=== PATIENT | male | born 1980 | race Two or more races ===

== ENCOUNTER 2019-05-20 09:58 | Outpatient (CLI) | payer BC | END 2019-05-20 09:59 | disposition EMS.NT | LOC: EMS 09:58 | PROVIDERS: ATTEND Surgery | DX: R07.9 Chest pain, unspecified (principal) ==

== ENCOUNTER 2019-05-20 10:57 | Emergency (ER) | payer BC ==
[2019-05-20 11:29] LABS: BASOPHILS # (AUTO) 0.1 10^3/uL (0.0-0.1); BASOPHILS % (AUTO) 0.6 %; EOSINOPHILS # (AUTO) 0.1 10^3/uL (0.0-0.7); EOSINOPHILS % (AUTO) 1.4 %; LYMPHOCYTES # (AUTO) 1.7 10^3/uL (1.5-3.5); LYMPHOCYTES % (AUTO) 20.1 %; MEAN CORPUSCULAR HEMOGLOBIN 31.1 pg (27.0-31.0); MEAN CORPUSCULAR HGB CONC 35.4 g/dL (32.0-36.0); MEAN CORPUSCULAR VOLUME 87.9 fL (80.0-94.0); MEAN PLATELET VOLUME 9.7 fL (7.4-11.4); MONOCYTES # (AUTO) 0.6 10^3/uL (0.0-1.0); MONOCYTES % (AUTO) 7.4 %; NEUTROPHILS # (AUTO) 5.9 10^3/uL (1.5-6.6); PLT - PLATELET COUNT 286 10^3/uL (130-450); RED BLOOD COUNT 5.46 10^6/uL (4.70-6.10); RED CELL DISTRIBUTION WIDTH 12.6 % (12.0-15.0); WHITE BLOOD COUNT 8.4 x10^3/uL (4.8-10.8)
--- NOTE | 2019-05-20 11:34 | XRAY Report ---
Reason: chest pain Procedure Date: 05/20/2019 Accession Number: [id number] / [id number] Procedure: XR - Chest 1 View X-Ray CPT Code: 42091 FULL RESULT: EXAM: CHEST RADIOGRAPHY EXAM DATE: 05/20/2019 11:27 AM. CLINICAL HISTORY: Chest pain that radiates down left arm. COMPARISON: None. TECHNIQUE: 1 view. FINDINGS: Lungs/Pleura: No focal opacities evident. No pleural effusion. No pneumothorax. Mediastinum: Within exam limitations, the cardiomediastinal contour is normal. Other: None. IMPRESSION: 1. No acute disease in the chest. RADIA
[2019-05-20 11:42] LABS: ALBUMIN 4.7 g/dL (3.2-5.5); ALBUMIN/GLOBULIN RATIO 1.5 (1.0-2.2); BILIRUBIN,TOTAL 1.1 mg/dL (0.2-1.0); CALCIUM 9.4 mg/dL (8.5-10.3); TOTAL PROTEIN 7.8 g/dL (6.7-8.2)
--- NOTE | 2019-05-20 11:45 | ED Physician Documentation ---
PD HPI DYSPNEA - Stated complaint Stated Complaint: CHEST PAIN/LT ARM PX - Chief complaint Chief Complaint: Cardiac - History obtained from History obtained from: Patient, Family - History of Present Illness Timing - onset: Enter time (0900), Today Timing - onset during: Emotional event Timing - duration: Minutes (40) Timing - details: Abrupt onset, Still present in ED (reduced to left shoulder pain) Inciting event(s): URI, Emotional event Improved by: Other (having a say at a meeting) Worsened by: No: Exertion, Coughing Associated symptoms: Cough, Chest pain / discomfort. No: Fever, Wheezing Similar symptoms before: Has not had sx before Recently seen: Not recently seen - Additional information Additional information: Previously well 39-year-old male was at work today when he began to experience some substernal chest pain with radiation into his left arm that he states occurred with stress at work. He states that the stress is related to a coworker a single individual and there was a meeting regarding the individual today and the patient was able to get his say in. He states that following that he felt some improvement in his pain but he has this persistence of pain in his left shoulder. He feels that this is all related to stress from this situation. He does have a family history of early coronary disease disease with his father dying at age 36. The patient denies any recent change in his physical stamina. 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 The patient denies any diaphoresis with the exception of some sweaty palms he denies nausea or dyspnea associated with this does state that he has had some cough and sputum production and he has some feeling of dizziness. Review of Systems Constitutional: denies: Fever, Chills, Myalgias Eyes: denies: Decreased vision Ears: denies: Ear pain Nose: reports: Rhinorrhea / runny nose, Congestion Throat: reports: Sore throat Cardiac: reports: Chest pain / pressure. denies: Palpitations Respiratory: reports: Cough. denies: Dyspnea, Wheezing GI: denies: Abdominal Pain, Nausea, Vomiting : denies: Dysuria, Frequency PD PAST MEDICAL HISTORY - Present Medications Home Medications: Ambulatory Orders Medication Instructions Recorded Confirmed Azithromycin [Zithromax] 250 mg PO DAILY #6 tablet 05/20/19 - Allergies Allergies/Adverse Reactions: Allergies Allergy/AdvReac Type Severity Reaction Status Date / Time No Known Drug Allergies Allergy Verified 05/20/19 11:02 PD ED PE NORMAL - Vitals Vital signs reviewed: Yes (hypertensive ) - General General: Alert and oriented X 3, No acute distress, Well developed/nourished - HEENT HEENT: Atraumatic, PERRL, EOMI, Pharynx benign, Other (Both TM's are inflamed the left is more involved with distortion of the landmarks. ) - Neck Neck: Supple, no meningeal sign, No bony TTP - Cardiac Cardiac: RRR, No murmur - Respiratory Respiratory: No respiratory distress, Clear bilaterally - Abdomen Abdomen: Soft, Non tender - Back Back: No CVA TTP, No spinal TTP - Derm Derm: Normal color, Warm and dry, No rash - Extremities Extremities: No deformity, No edema - Neuro Neuro: Alert and oriented X 3, egg sorter 2-12 intact, No motor deficit, No sensory deficit, Normal speech Eye Opening: Spontaneous Motor: Obeys Commands Verbal: Oriented GCS Score: 15 - Psych Psych: Normal mood, Normal affect Results - Vitals Vitals: Vital Signs - 24 hr 05/20/19 05/20/19 05/20/19 11:02 12:04 15:21 Temperature 37.1 C Heart Rate 72 66 72 Respiratory 18 17 14 Rate Blood Pressure 150/78 H 136/80 H 135/80 H O2 Saturation 97 99 99 Oxygen O2 Source Room air - EKG (time done) 1108 Rate: Rate (enter#) (69) Rhythm: NSR Ischemia: ST elevation c/w repol (in V2&V3 1mV) Compare to prior EKG: Old EKG unavailable Computer interpretation: Agree with computer - Labs Labs: Laboratory Tests 05/20/19 05/20/19 05/20/19 11:20 11:20 11:20 WBC 8.4 RBC 5.46 Hgb 17.0 Hct 48.0 MCV 87.9 MCH 31.1 H MCHC 35.4 RDW 12.6 Plt Count 286 MPV 9.7 Neut # (Auto) 5.9 Lymph # (Auto) 1.7 Baker # (Auto) 0.6 Eos # (Auto) 0.1 Baso # (Auto) 0.1 Absolute Nucleated RBC 0.00 Nucleated RBC % 0.0 Sodium 138 Potassium 4.0 Chloride 104 Carbon Dioxide 26 Anion Gap 8.0 BUN 20 Creatinine 1.0 Estimated GFR (MDRD) 84 L Glucose 101 H Calcium 9.4 Total Bilirubin 1.1 H AST 26 ALT 49 Alkaline Phosphatase 57 Troponin I High Sens 3.0 Total Protein 7.8 Albumin 4.7 Globulin 3.1 Albumin/Globulin Ratio 1.5 Lipase 52 H 05/20/19 13:59 WBC RBC Hgb Hct MCV MCH MCHC RDW Plt Count MPV Neut # (Auto) Lymph # (Auto) Baker # (Auto) Eos # (Auto) Baso # (Auto) Absolute Nucleated RBC Nucleated RBC % Sodium Potassium Chloride Carbon Dioxide Anion Gap BUN Creatinine Estimated GFR (MDRD) Glucose Calcium Total Bilirubin AST ALT Alkaline Phosphatase Troponin I High Sens 3.0 Total Protein Albumin Globulin Albumin/Globulin Ratio Lipase - Rads (name of study) Chest Radiology: Prelim report reviewed (Impression: 1. No acute disease in the chest), EMP read indepedently, See rad report PD MEDICAL DECISION MAKING - ED course Complexity details: reviewed results, re-evaluated patient, considered differential, d/w patient, d/w family ED course: 39-year-old male with a family history of early coronary disease has developed chest pain during a stressful situation at work today when he had to confront a situation with a coworker. The patient has had improvement in his symptoms and his electric cardiogram is nondiagnostic he has two negative troponins and his pain is essentially resolved in the emergency department. He does have a cough and congestion and on examination has otitis. He is given a dose of dexamethasone 10 mg orally we will place him on some antibiotic for this. I have encouraged the patient to follow-up with his primary care doctor to consider exercise treadmill test. Departure - Departure Disposition: 01 Home, Self Care Clinical Impression: Atypical chest pain, Stress reaction Otitis media Qualifiers: Otitis media type: suppurative Chronicity: acute Laterality: left Recurrence: non-recurrent Spontaneous tympanic membrane rupture: without spontaneous rupture Qualified Code(s): H66.002 - Acute suppurative otitis media without spontaneous rupture of ear drum, left ear Condition: Stable Instructions: ED Stress React, ED Chest Pain Atypical Unkn Cause, ED Otitis Media Acute Adult Follow-Up: [facility] [Provider Group] Prescriptions: Azithromycin [Zithromax] 250 mg PO DAILY #6 tablet Discharge Date/Time: 05/20/19 15:27
[2019-05-20] MEDS ORDERED: DEXAMETHASONE 10 MG/ML VIAL PO STA (15:08)
[2019-05-20] MEDS ORDERED: CHERRY SYRUP 10 ML UDC PO ONE (15:08)
[2019-05-20 15:24] VITALS: BP 135/80
== END 2019-05-20 15:27 | disposition home or self-care (01) ==
LOC: ED 10:57
DX: R07.89 Other chest pain (principal); F43.9 Reaction to severe stress, unspecified; H66.002 Acute suppurative otitis media without spontaneous rupture of ear drum, left ear
CPT/HCPCS: 36415; 71045; 80053; 83690; 84484; 85025; 93005; 99283; 99284; A9270

== ENCOUNTER 2022-09-22 11:39 | Outpatient (CLI) | payer BC ==
[2022-09-22 19:29] LABS: BASOPHILS # (AUTO) 0.1 10^3/uL (0.0-0.1); BASOPHILS % (AUTO) 0.8 %; EOSINOPHILS # (AUTO) 0.2 10^3/uL (0.0-0.7); EOSINOPHILS % (AUTO) 2.9 %; HCT - HEMATOCRIT 52.3 % (42.0-52.0); HGB - HEMOGLOBIN 16.9 g/dL (14.0-18.0); LYMPHOCYTES # (AUTO) 2.6 10^3/uL (1.5-3.5); LYMPHOCYTES % (AUTO) 30.6 %; MEAN CORPUSCULAR HEMOGLOBIN 29.8 pg (27.0-31.0); MEAN CORPUSCULAR HGB CONC 32.3 g/dL (32.0-36.0); MEAN CORPUSCULAR VOLUME 92.2 fL (80.0-94.0); MEAN PLATELET VOLUME 10.3 fL (7.4-11.4); MONOCYTES # (AUTO) 0.7 10^3/uL (0.0-1.0); MONOCYTES % (AUTO) 8.1 %; NEUTROPHILS # (AUTO) 4.8 10^3/uL (1.5-6.6); NEUTROPHILS % (AUTO) 57.4 %; PLT - PLATELET COUNT 276 10^3/uL (130-450); RED BLOOD COUNT 5.67 10^6/uL (4.70-6.10); RED CELL DISTRIBUTION WIDTH 12.5 % (12.0-15.0); WHITE BLOOD COUNT 8.4 x10^3/uL (4.8-10.8)
[2022-09-22 19:44] LABS: ALBUMIN 4.6 g/dL (3.2-5.5); ALBUMIN/GLOBULIN RATIO 1.4 (1.0-2.2); ALKALINE PHOSPHATASE 50 IU/L (42-121); ALT ALANINE AMINOTRANSFERASE 49 IU/L (10-60); AST ASPARTATE AMINOTRANSFERASE 23 IU/L (10-42); BILIRUBIN,TOTAL 1.8 mg/dL (0.2-1.0); BUN - BLOOD UREA NITROGEN 16 mg/dL (6-20); CALCIUM 9.8 mg/dL (8.5-10.3); CARBON DIOXIDE - CO2 29 mmol/L (21-32); CHLORIDE 99 mmol/L (101-111); CHOL/HDL RATIO 4.7 (<5.0); CHOLESTEROL 159 mg/dL; GFR - MDRD 83 (>89); GLUCOSE 98 mg/dL (70-100); HDL CHOLESTEROL 34 mg/dL; LDL CHOLESTEROL,CALCULATED 96 mg/dL; LDL/HDL RATIO 2.8 (<3.6); POTASSIUM 4.4 mmol/L (3.5-5.0); SODIUM 138 mmol/L (135-145); TOTAL PROTEIN 7.8 g/dL (6.7-8.2); TRIGLYCERIDES 143 mg/dL; VLDL CHOLESTEROL 29 mg/dL
== END 2022-09-22 11:40 | disposition home or self-care (01) ==
LOC: LAB.N 11:39
PROVIDERS: ATTEND Physician Assistant
DX: D75.A Glucose-6-phosphate dehydrogenase (G6PD) deficiency without anemia (principal); Z13.220 Encounter for screening for lipoid disorders
CPT/HCPCS: 36415; 80053; 80061; 83721; 85025